=== PATIENT | female | born 1985 | race Caucasian/White ===

== ENCOUNTER 2018-02-16 02:59 | Emergency (ER) | payer MEDICARE, MEDICAID ==
[~2018-02-16] VITALS: Ht 149.9 cm; Wt 55.0 kg
[~2018-02-16 02:59] MED LIST: ALPR1TAB2 PO; CIPR500T87 PO; CIPR750T PO; OXYC-307 PO
[2018-02-16] MEDS ORDERED: KETOROLAC 30 MG/1 ML ONE (03:32)
[2018-02-16] MEDS ORDERED: KETOROLAC 30 MG/1 ML IM ONE (04:00)
[2018-02-16 05:15] VITALS: BP 119/82
== END 2018-02-16 06:02 | disposition home or self-care (01) ==
LOC: ED 05:24
DX: S06.0X0A Concussion without loss of consciousness, initial encounter (principal); G89.11 Acute pain due to trauma; R07.9 Chest pain, unspecified; F31.9 Bipolar disorder, unspecified; F41.9 Anxiety disorder, unspecified; Z87.442 Personal history of urinary calculi; Z88.0 Allergy status to penicillin; Z90.49 Acquired absence of other specified parts of digestive tract; Y04.0XXA Assault by unarmed brawl or fight, initial encounter; Y93.89 Activity, other specified; Y99.8 Other external cause status; Y92.89 Other specified places as the place of occurrence of the external cause
CPT/HCPCS: 70450; 70486; 71046; 72125; 96372; 99284; J1885

== ENCOUNTER 2019-02-01 14:25 | Emergency (ER) | payer MEDICARE, MEDICAID ==
[~2019-02-01] VITALS: Ht 149.9 cm; Wt 46.5 kg
[~2019-02-01 14:25] MED LIST changes: +ALPR2TAB2 PO; +CEFD300C37 PO; +OXYC5TAB3 PO; +PHEN-582 PO; +TAMS-11 PO; +TRAZ-137 PO
[2019-02-01 15:20] LABS: MEAN CORPUSCULAR HEMOGLOBIN 28.7 pg (27.0-34.8); MEAN CORPUSCULAR HGB CONC 34.1 g/dL (32.4-35.8); MEAN CORPUSCULAR VOLUME 84.2 fL (80-100); MEAN PLATELET VOLUME 6.9 fL (7.4-10.4); PLATELET COUNT 506 x10^3/uL (130-400); RED BLOOD COUNT 5.09 x10^6/uL (3.82-5.3); RED CELL DISTRIBUTION WIDTH 16.2 % (9.6-15.2)
[2019-02-01 15:28] LABS: ALBUMIN 3.8 g/dL (3.4-5.0); ANION GAP 6 mmol/L (5-15); CALCIUM 9.1 mg/dL (8.5-10.1); CHLORIDE 105 mmol/L (98-107); CREATININE 0.79 mg/dL (0.55-1.02)
[2019-02-01 15:59] LABS: BASOPHILS # (AUTO) 0.09 x10^3/uL (0-0.1); BASOPHILS % (AUTO) 1 % (0-1); EOSINOPHILS % (AUTO) 2 % (1-7); LYMPHOCYTES # (AUTO) 3.64 x10^3/uL (1-3.4); LYMPHOCYTES % (AUTO) 29 % (22-44); MD SCAN; MONOCYTES # (AUTO) 0.72 x10^3/uL (0.2-0.8); MONOCYTES % (AUTO) 6 % (2-9); NEUTROPHILS % (AUTO) 63 % (42-75)
--- NOTE | 2019-02-01 16:06 | NUR ---
TO ROOM FROM LOBBY. NAD.
--- NOTE | 2019-02-01 16:29 | NUR ---
URINE COLLECTED/SENT TO LAB. PT ASKED TO GET IN GOWN, WARM BLANKET PROVIDED. PT UPDATED ON POC. PT NAUSEATED AT THIS TIME, ZOFRAN ODT ORDERED PER PROTOCOL. CALL LIGHT WITHIN REACH.
[2019-02-01] MEDS ORDERED: ONDANSETRON ODT 4 MG PO ONE (16:30)
[2019-02-01] MEDS ORDERED: ONDANSETRON ODT 4 MG ONE (16:31)
[2019-02-01 16:38] LABS: MICROSCOPIC INDICATED
[2019-02-01 16:51] LABS: CULTURE INDICATED? YES
[2019-02-01] MEDS ORDERED: FAMOTIDINE 20 MG/2 ML ONE (16:55)
[2019-02-01] MEDS ORDERED: SODIUM CHLORIDE 0.9% 1,000ML IVBOLUS ONE (17:00)
[2019-02-01] MEDS ORDERED: SODIUM CHLORIDE FLUSH 10ML SYR IVF ONE (17:00)
[2019-02-01] MEDS ORDERED: FAMOTIDINE 20 MG/2 ML IVP ONE (17:00)
[2019-02-01] MEDS ORDERED: MORPHINE SULFATE 4 MG/ML, 1ML ONE ×2 (17:20→18:59)
--- NOTE | 2019-02-01 17:37 | NUR ---
SANDRA RN: PT CURRENTLY RESTING ON GURNEY. PT SLIGHTLY RESTLESS ON GURNEY. PT C/O 07/08 BILAT LOWER ABD QUAD PAIN. DISCUSSED WITH VAL KAY AND PT MEDICATED ORDERED FOR PAIN. PT AO X 4. SKIN PWD. RESP EVEN AND EQAUL. PT AWARE WE ARE WAITING FOR URO CONSULT. AT BEDSIDE. CALL LIGHT WITHIN REACH.
[2019-02-01] MEDS ORDERED: MORPHINE SULFATE 4 MG/ML, 1ML IVPush ONE ×2 (18:00→19:30)
[2019-02-01] MEDS ORDERED: KETOROLAC 30 MG/1 ML IVPush ONE (18:00)
[2019-02-01] MEDS ORDERED: KETOROLAC 30 MG/1 ML ONE (18:07)
--- NOTE | 2019-02-01 18:13 | NUR ---
PT MEDICATED WITH TORADOL PER ERP ORDER. PT STATES MEDS HAVE HELPED PAIN BUT HAS DIFFICULTY PUTTING NUMBER ON PAIN LEVEL. FLACC 2. US AT BS. CALL LIGHT WITHIN REACH, FAMILY AT BS.
[2019-02-01 19:16] VITALS: BP 122/79
== END 2019-02-01 19:19 | disposition home or self-care (01) ==
LOC: ED 18:23
DX: R11.2 Nausea with vomiting, unspecified (principal); R31.9 Hematuria, unspecified; R10.0 Acute abdomen; F41.1 Generalized anxiety disorder; Z90.49 Acquired absence of other specified parts of digestive tract; Z90.721 Acquired absence of ovaries, unilateral
CPT/HCPCS: 36415; 76770; 80048; 81001; 82040; 84703; 85025; 87086; 96361; 96374; 96375; 96376; 99284; J1885; J3490; J7030; Q0162

== ENCOUNTER 2019-02-04 12:27 | Emergency (ER) | payer MEDICARE, MEDICAID ==
[~2019-02-04] VITALS: Ht 149.9 cm; Wt 46.8 kg
[2019-02-04 12:39] VITALS: BP 101/77
--- NOTE | 2019-02-04 13:10 | NUR ---
PT PRESENTING TO ER FOR PELIV/VAGINAL PAIN SINCE HAVING KIDNEY STENT PLACED. PT STATES PAIN AND NAUSEA UNCONTROLLED AT HOME. SHIMA AT BEDSIDE. MD AT BEDSIDE FOR ASSESSMENT. AWAITING ORDERS AT THIS TIME. CALL LIGHT WITHIN REACH
[2019-02-04] MEDS ORDERED: OXYcodone/APAP 5/325MG TABLET ONE (13:16)
[2019-02-04] MEDS ORDERED: OXYcodone/APAP 5/325MG TABLET PO ONE (13:30)
[2019-02-04 13:31] LABS: BASOPHILS # (AUTO) 0.08 x10^3/uL (0-0.1); BASOPHILS % (AUTO) 1 % (0-1); EOSINOPHILS % (AUTO) 3 % (1-7); LYMPHOCYTES # (AUTO) 3.93 x10^3/uL (1-3.4); LYMPHOCYTES % (AUTO) 31 % (22-44); MD NO; MEAN CORPUSCULAR HEMOGLOBIN 28.9 pg (27.0-34.8); MEAN PLATELET VOLUME 6.8 fL (7.4-10.4); MONOCYTES # (AUTO) 0.61 x10^3/uL (0.2-0.8); MONOCYTES % (AUTO) 5 % (2-9); NEUTROPHILS # (AUTO) 7.75 x10^3/uL (1.8-6.8); NEUTROPHILS % (AUTO) 61 % (42-75); PLATELET COUNT 489 x10^3/uL (130-400); RED BLOOD COUNT 5.12 x10^6/uL (3.82-5.3); RED CELL DISTRIBUTION WIDTH 16.4 % (9.6-15.2)
--- NOTE | 2019-02-04 13:32 | NUR ---
PT MEDICATED FOR PAIN PER MAR. STRAIGHT CATH UA COLLECTED AND SENT TO LAB. AWAITING RESULTS AND DISPO AT THIS TIME. CALL LIGHT WITHIN REACH. FAMILY AT BEDSIDE
[2019-02-04 13:44] LABS: ALANINE AMINOTRANSFERASE 45 U/L (12-78); ALBUMIN 3.9 g/dL (3.4-5.0); ANION GAP 6 mmol/L (5-15); CALCIUM 9.1 mg/dL (8.5-10.1); CHLORIDE 106 mmol/L (98-107); CREATININE 0.88 mg/dL (0.55-1.02)
[2019-02-04 13:48] LABS: ALKALINE PHOSPHATASE 65 U/L (45-117); BILIRUBIN,TOTAL 0.2 mg/dL (0.2-1.0); TOTAL PROTEIN 7.4 g/dL (6.4-8.2)
[2019-02-04 13:53] LABS: MICROSCOPIC INDICATED
[2019-02-04 13:54] LABS: CULTURE INDICATED? YES
--- NOTE | 2019-02-04 14:09 | NUR ---
MD TO BEDSIDE TO UPDATE PT ON POC.
== END 2019-02-04 14:41 | disposition home or self-care (01) ==
LOC: ED 14:35
DX: N20.2 Calculus of kidney with calculus of ureter (principal); F41.1 Generalized anxiety disorder; F31.9 Bipolar disorder, unspecified; F17.200 Nicotine dependence, unspecified, uncomplicated; Z88.5 Allergy status to narcotic agent; Z88.0 Allergy status to penicillin; Z90.49 Acquired absence of other specified parts of digestive tract
CPT/HCPCS: 36415; 80053; 81001; 84703; 85025; 87086; 99283

== ENCOUNTER 2019-02-09 05:25 | Day surgery (SDC) | payer MEDICARE, MEDICAID ==
[~2019-02-09] VITALS: Ht 149.9 cm; Wt 47.7 kg
[2019-02-09] MEDS ORDERED: LACTATED RINGERS 1,000 ML IV SCH (06:01)
[2019-02-09 06:22] LABS: HCG UR SG 1.022 (1.003-1.030)
[2019-02-09 06:30] VITALS: BP 102/65
[2019-02-09] MEDS ORDERED: MIDAZOLAM 1 MG/ML, 2ML ONE (07:11)
[2019-02-09] MEDS ORDERED: FENTANYL PF 250 MCG/5ML ONE (07:11)
[2019-02-09] MEDS ORDERED: SUCCINYLCHOLINE 20 MG/ML, 10ML ONE (07:14)
[2019-02-09] MEDS ORDERED: PROPOFOL 10 MG/ML, 20ML ONE (07:14)
[2019-02-09] MEDS ORDERED: ROCURONIUM 10MG/ML,5ML ONE (07:14)
[2019-02-09] MEDS ORDERED: ONDANSETRON 2MG/ML, 2ML ONE (07:15)
[2019-02-09] MEDS ORDERED: ONDANSETRON ODT 8 MG PO PRN (08:00)
[2019-02-09] MEDS ORDERED: OXYcodone 5 MG/5 ML ORAL.SOL UDC PO PRN (08:00)
[2019-02-09] MEDS ORDERED: MEPERIDINE/PF 25MG/0.5ML IVPush PRN (08:00)
[2019-02-09] MEDS ORDERED: LABETALOL 5MG/ML, 20ML IV PRN (08:00)
[2019-02-09] MEDS ORDERED: MIDAZOLAM 1 MG/ML, 2ML IV PRN (08:00)
[2019-02-09] MEDS ORDERED: PROMETHAZINE 12.5 MG SUPP PR PRN (08:00)
[2019-02-09] MEDS ORDERED: HYDROmorphone 2 MG/ML, 1ML IVPush PRN (08:00)
[2019-02-09] MEDS ORDERED: MORPHINE SULFATE 4 MG/ML, 1ML IVPush PRN (08:00)
[2019-02-09] MEDS ORDERED: EPHEDRINE 50 MG/ML, 1ML IVPush PRN (08:00)
[2019-02-09] MEDS ORDERED: ALBUTEROL SULFATE 2.5 MG/3 ML NPPB PRN (08:00)
[2019-02-09] MEDS ORDERED: hydrALAzine 20 MG/ML, 1ML IV PRN (08:00)
[2019-02-09] MEDS ORDERED: HALOPERIDOL 5 MG/ML IV PRN (08:00)
[2019-02-09] MEDS ORDERED: ACETAMINOPHEN 325 MG TABLET PO PRN (08:00)
[2019-02-09] MEDS ORDERED: DIAZEPAM 5 MG/ML, 2ML IVPush PRN (08:00)
[2019-02-09] MEDS ORDERED: PROMETHAZINE 25 MG/ML, 1ML IV PRN (08:00)
[2019-02-09] MEDS ORDERED: ONDANSETRON 2MG/ML, 2ML IV PRN (08:00)
[2019-02-09] MEDS ORDERED: KETOROLAC 30 MG/1 ML ONE (08:02)
[2019-02-09] MEDS ORDERED: FENTANYL PF 100 MCG/2ML ONE ×3 (08:39→10:36)
[2019-02-09] MEDS ORDERED: OXYcodone 5 MG/5 ML ORAL.SOL UDC ONE (08:39)
[2019-02-09] MEDS ORDERED: PROMETHAZINE 25 MG/ML, 1ML ONE (08:41)
[2019-02-09] MEDS: FENTANYL PF 100 MCG/2ML IV PRN ×2 (08:46→08:51)
[2019-02-09] MEDS ORDERED: FENTANYL PF 100 MCG/2ML IV ONE (10:28)
[2019-02-09] MEDS ORDERED: EPHEDRINE 50 MG/ML, 1ML ONE (10:31)
[2019-02-09] MEDS ORDERED: DEXAMETHASONE 4 MG/ML, 1ML ONE (10:31)
== END 2019-02-09 11:15 | disposition home or self-care (01) ==
LOC: OUT 05:25
PROVIDERS: ATTEND Urology
DX: N20.1 Calculus of ureter (principal); Z88.6 Allergy status to analgesic agent; Z88.0 Allergy status to penicillin
CPT/HCPCS: 52356; 74018; 76000; 81025; C1769; C2617; J0330; J1100; J1885; J2250; J2405; J2550; J2704; J3010; J7120